=== PATIENT | female | born 1985 | race Native Hawaiian/Other Pacific Islander ===

== ENCOUNTER 2016-11-08 15:59 | Emergency (ER) | payer OTHER ==
[2016-11-08] MEDS ORDERED: LIDOCAINE VISCOUS 2% PO ONE (22:53)
[2016-11-08] MEDS ORDERED: TYLENOL/CODEINE PO ONE (22:53)
[2016-11-08] MEDS ORDERED: DECADRON PO ONE (22:53)
--- NOTE | 2016-11-08 22:56 | Emergency Department Report ---
ED Chest Pain HPI - General Chief Complaint: Chest Pain Stated Complaint: COUGH/CONGESTION Time Seen by Provider: 11/08/16 22:52 Source: patient Mode of arrival: Ambulatory Limitations: No Limitations - History of Present Illness Initial Comments: Patient reports productive cough with back and chest pain that started 2-1/2 weeks ago. LMP 10/14/16 MD Complaint: chest pain, other (back pain) Onset/Timin -: week(s) Onset: during rest, during exertion Pain Location: substernal Pain Radiation: back Severity: severe Severity scale (0 -10): 8 Quality: aching Consistency: intermittent Improves With: nothing Worsens With: other (coughing) Context: other (none) re: denies: nausea, vomting, diaphoresis, dyspnea, sense of impending doom Other Symptoms: cough. denies: fever, syncope, rash, acid taste in mouth, leg swelling, palpitations, burping Treatments Prior to Arrival: none Aspirin use within the Past 7 Days: (0) No - Related Data On Oral Contraceptives: No Previous Rx's Medication Instructions Recorded Last Taken Type Acetaminophen [Acetaminophen TAB] 500 mg PO Q6HR #20 tablet 11/09/16 Unknown Rx Albuterol Sulfate [Ventolin HFA] 2 puff IH Q4H PRN #1 hfa.aer.ad 11/09/16 Unknown Rx Benzonatate [Tessalon Perles] 100 mg PO Q8HR #12 capsule 11/09/16 Unknown Rx Cetirizine HCl [ZyrTEC] 10 mg PO DAILY #30 capsule 11/09/16 Unknown Rx Allergies Allergy/AdvReac Type Severity Reaction Status Date / Time No Known Allergies Allergy Unverified 11/08/16 16:31 MEI score - Mei Score Age > 65: (0) No Aspirin use within the Past 7 Days: (0) No 3 or more CAD Risk Factors: (0) No 2 or more Angina events in past 24 hrs: (0) No Known CAD with more than 50% Stenosis: (0) No Elevated Cardiac Markers: (0) No ST Deviation Greater than 0.5mm: (0) No MEI Score: 0 ED Review of Systems ROS: Stated complaint: COUGH/CONGESTION Other details as noted in HPI Constitutional: denies: chills, diaphoresis, fever, malaise, weakness Eyes: denies: eye pain, eye discharge, vision change ENT: denies: ear pain, throat pain, dental pain, hearing loss, epistaxis, congestion Respiratory: cough (productive). denies: orthopnea, shortness of breath, SOB with exertion, SOB at rest, stridor Cardiovascular: chest pain (discomfort from coughing). denies: palpitations, dyspnea on exertion, orthopnea, edema, syncope, paroxysmal nocturnal dyspnea Gastrointestinal: denies: abdominal pain, nausea, vomiting, diarrhea, constipation Musculoskeletal: back pain. denies: joint swelling, arthralgia, myalgia Skin: denies: rash, lesions, change in color, change in hair/nails, pruritus Neurological: denies: headache, weakness, numbness, paresthesias, confusion, abnormal gait, vertigo Hematological/Lymphatic: denies: easy bleeding, easy bruising, swollen glands ED Past Medical Hx - Medications Home Medications: Home Medications Medication Instructions Recorded Confirmed Last Taken Type Acetaminophen [Acetaminophen TAB] 500 mg PO Q6HR #20 tablet 11/09/16 Unknown Rx Albuterol Sulfate [Ventolin HFA] 2 puff IH Q4H PRN #1 hfa.aer.ad 11/09/16 Unknown Rx Benzonatate [Tessalon Perles] 100 mg PO Q8HR #12 capsule 11/09/16 Unknown Rx Cetirizine HCl [ZyrTEC] 10 mg PO DAILY #30 capsule 11/09/16 Unknown Rx ED Physical Exam - General Limitations: No Limitations General appearance: alert, in no apparent distress - Head Head exam: Present: atraumatic, normocephalic, normal inspection - Eye Eye exam: Present: normal appearance, PERRL, EOMI Pupils: Present: normal accommodation - ENT ENT exam: Present: normal exam, mucous membranes moist, TM's normal bilaterally , normal external ear exam, other (swelling to nasal turbinates and tenderness to palpation maxilliary sinuses). Absent: mucous membranes dry - Expanded ENT Exam Expanded Ear exam: Present: normal external inspection. Absent: auricular hematoma, auricular trauma Mouth exam: Present: normal external inspection, tongue normal. Absent: drooling, trismus, muffled voice, tongue elevation, laceration Teeth exam: Present: normal inspection Throat exam: Positive: tonsillomegaly. Negative: tonsillar erythema, tonsillar exudate - Neck Neck exam: Present: normal inspection, full ROM. Absent: tenderness, meningismus, lymphadenopathy, thyromegaly - Respiratory Respiratory exam: Present: normal lung sounds bilaterally. Absent: respiratory distress, wheezes, rales, rhonchi, stridor, chest wall tenderness, accessory muscle use, decreased breath sounds, prolonged expiratory - Cardiovascular Cardiovascular Exam: Present: regular rate, normal rhythm, normal heart sounds. Absent: systolic murmur, diastolic murmur, rubs, gallop, clicks, JVD, S3, S4 - GI/Abdominal GI/Abdominal exam: Present: soft, normal bowel sounds. Absent: distended, tenderness, guarding, rebound, rigid - Back Exam Back exam: Present: normal inspection. Absent: CVA tenderness (R), CVA tenderness (L) - Neurological Exam Neurological exam: Present: alert, oriented X3, CN II-XII intact, normal gait, reflexes normal. Absent: motor sensory deficit - Skin Skin exam: Present: warm, dry, intact, normal color. Absent: rash ED Course Vital Signs 11/08/16 16:31 Temperature 98.5 F Pulse Rate 88 Respiratory 20 Rate Blood Pressure 105/64 O2 Sat by Pulse 97 Oximetry - Reevaluation(s) Reevaluation #1: 11/08/16 22:57 radiology studies, pain medication, and oral steroids with Lidocaine viscous Reevaluation #2: 11/09/16 00:06 antibiotic injection and resp tx ordered ED Medical Decision Making - EKG Data EKG shows normal: sinus rhythm Rate: normal - EKG Data When compared to previous EKG there are: no significant change, changes noted Interpretation: no acute changes, normal EKG - Radiology Data Radiology results: image reviewed EXAM: XR CHEST ROUTINE 2V HISTORY: chest pain/productive cough TECHNIQUE: 2 views of the chest. PRIORS: None. FINDINGS: The cardiomediastinal silhouette appears normal. There is a small right middle lobe patchy infiltrate. The left lung is clear. The bones and soft tissues are unremarkable. IMPRESSION: Small right middle lobe patchy infiltrate consistent with mild pneumonia. - Medical Decision Making During the course of ED, radiology studies, pain medication, and oral steroids with Lidocaine viscous. The imaging study revealed Small right middle lobe patchy infiltrate consistent with mild pneumonia. Antibiotic injection and resp tx were ordered prior to discharge. Patient reports symptomatic relief from medications given in the ED. She was sent home with prescriptions for Ventolin HFA, Zyrtec, Acetaminophen and Tesalon Perles, instructed to follow up with the selective referral given at discharge, she verbalized understanding - Differential Diagnosis Pneumonia, Upper Respiratory Infection Critical care attestation.: If time is entered above; I have spent that time in minutes in the direct care of this critically ill patient, excluding procedure time. ED Disposition Clinical Impression: Pneumonia Qualifiers: Pneumonia type: due to unspecified organism Laterality: right Lung location: middle lobe of lung Qualified Code(s): J18.9 - Pneumonia, unspecified organism Disposition: DISCHARGED TO HOME OR SELFCARE Is pt being admited?: No Does the pt Need Aspirin: No Condition: Stable Instructions: Bacterial Pneumonia (ED) Additional Instructions: Take medication as directed. Follow up with the selective referral given at discharge Prescriptions: Acetaminophen [Acetaminophen TAB] 500 mg PO Q6HR #20 tablet Benzonatate [Tessalon Perles] 100 mg PO Q8HR #12 capsule Albuterol Sulfate [Ventolin HFA] 2 puff IH Q4H PRN #1 hfa.aer.ad PRN Reason: Shortness Of Breath Cetirizine HCl [ZyrTEC] 10 mg PO DAILY #30 capsule Referrals: [facility] [Outside] - 3-5 Days Forms: Work/School Release Form(ED) Time of Disposition: 00:09
[2016-11-08] MEDS ORDERED: ROCEPHIN IM ONE (23:45)
--- NOTE | 2016-11-08 23:53 | XRay Report ---
FINAL REPORT EXAM: XR CHEST ROUTINE 2V HISTORY: chest pain/productive cough TECHNIQUE: 2 views of the chest. PRIORS: None. FINDINGS: The cardiomediastinal silhouette appears normal. There is a small right middle lobe patchy infiltrate. The left lung is clear. The bones and soft tissues are unremarkable. IMPRESSION: Small right middle lobe patchy infiltrate consistent with mild pneumonia.
[2016-11-08] MEDS ORDERED: XYLOCAINE 1% MPF 5 mL INFILTRATI ONE (23:58)
[2016-11-09] MEDS ORDERED: XOPENEX IH ONE (00:05)
[2016-11-09] MEDS ORDERED: NACL 0.9% NEBU ONE (00:20)
[2016-11-09] MEDS ORDERED: XYLOCAINE 1% 20 mL ONE (00:20)
[2016-11-09 00:38] VITALS: BP 110/75
== END 2016-11-09 00:55 | disposition home or self-care (01) ==
LOC: ED 15:59
DX: J18.9 Pneumonia, unspecified organism (principal)
CPT/HCPCS: 71020; 93005; 93010; 94640; 96372; 99283; J0696; J1100